=== PATIENT | female | born 1945 | race Caucasian/White ===

== ENCOUNTER 2023-03-31 12:19 | Outpatient (REF) | payer MEDICARE, SELFPAY ==
[2023-03-31 13:12] VITALS: BP 175/72; PULSE 70; RESP 16; TEMP 36.4; O2SAT 98
[2023-03-31 13:19] VITALS: BMI 29.0
== END 2023-03-31 12:20 | disposition home or self-care (01) ==
LOC: HO.MS 12:19
PROVIDERS: PCP Internal Medicine; Visit Provider Ophthalmology
PROC: (CPT 66821; principal; 2023-03-31 14:30)
DX: H26.491 Other secondary cataract, right eye (principal)
CPT/HCPCS: 66821